=== PATIENT | male | born 2000 | race Two or more races ===

== ENCOUNTER 2022-09-02 09:03 | Emergency (ER) | payer MEDICAID ==
[~2022-09-02] VITALS: Ht 175.3 cm; Wt 86.9 kg
[2022-09-02 10:36] VITALS: BP 144/84
[2022-09-02] MEDS ORDERED: cefTRIAXone SOD 1,000 MG VL IM ONE (10:45)
[2022-09-02] MEDS ORDERED: NAPR500T31 PO (11:07)
[2022-09-02] MEDS ORDERED: DOXY-338 PO (11:07)
== END 2022-09-02 11:17 | disposition home or self-care (01) ==
LOC: ER 09:12
DX: N48.1 Balanitis (principal)
CPT/HCPCS: 86592; 96372; 99283; J0696